=== PATIENT | female | born 1985 ===

== ENCOUNTER 2023-10-14 15:56 | Outpatient (AMB) | payer OTHER, MEDICARE, SELFPAY ==
--- NOTE | 2023-10-14 15:57 | MHC.OFFWIV ---
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 Patient has chronic pain and nausea at baseline, as well as chronic migraines, but states this headache is different. She does endorse nausea, and reports using marijuana, as she usually does to treat the nausea, with limited efficacy. For her chronic pain she generally takes 4 mg of Dilaudid twice a day as needed. She did take this dose as well about 2 hours ago. Her , at bedside, is concerned about her level of lethargy, given the head trauma. [facility] Social History Patient Tobacco Use Status: Current everyday Tobacco user Patient : No Review of Systems Const Reports as per HPI, Denies frequent falls, Reports headache(s), Reports lethargy and Reports weakness Eyes Denies blurry vision, Denies change in vision and Reports photophobia ENT Reports Normal hearing present, Reports dizziness, Reports headache(s) and Denies nasal trauma Card Denies syncope and Denies dyspnea Resp Denies dyspnea GI Reports nausea and Denies vomiting Denies urinary incontinence Musc Reports abnormal gait Skin/Breast Denies bleeding lesions Neuro Reports Normal hearing present, Denies Neuro-related abnormal movements, Reports abnormal gait, Reports dizziness, Denies syncope, Denies frequent falls, Reports headache(s), Denies lack of coordination, Denies focal weakness, Denies seizure-like activity and Reports weakness Thad/Lymph Denies easy bleeding and Denies easy bruising Physical Exam Vital Signs: Last Vital Signs Pulse 97 10/14/23 15:58 BP 110/74 10/14/23 15:58 Pulse Ox 92 10/14/23 15:58 Oxygen Delivery Method Room Air 10/14/23 15:58 BMI result Body Mass Index 23.8 Const General: cooperative, no acute distress, lethargic and tired appearing Orientation/consciousness: patient oriented x3 and lethargic HEENT Head: Yes normal to inspection, Yes No palpable skull fracture present, Yes normocephalic, Yes atraumatic, No abrasion, No contusion, No hematoma, No laceration, No raccoon eyes and No scalp lesion Ears: TM's normal bilaterally Mouth: Normal oral and palatal mucosa present and oropharynx normal Throat: Yes posterior oropharynx normal Eyes General: appearance normal, both eyes and all related structures Alignment and Position: alignment normal and position normal Periorbital: periorbital findings normal Eyelids: Yes eyelids normal Conjunctivae: conjunctivae normal Sclerae: scleral abnormal (injected) Pupils: Equal, round and reactive pupils present, Pupils normal by confrontation, Pupil accommodation reflex normal and Pinpoint pupils EOM: EOMs intact bilaterally Direct Ophthalmoscopy: normal light reflex and photophobia Neuro General: patient oriented x3 Cranial nerves: Yes Equal, round and reactive pupils present and Yes Normal hearing present Gait exam (Neuro): Shuffling gait present Motor exam (neuro): 5/5 motor strength present throughout and Normal motor muscle tone present throughout Deep tendon reflexes (DTR's): Right patellar reflex intensity grade: 3+ and Left patellar reflex intensity grade: 3+ Coordination: sways with eyes open and Romberg test positive Romberg Test: Positive Psych Mental Status: other (somnolent but responsive to questioning) Speech and movement: Clear speech present Affect: Labile affect present (abruptly tearful, then somnolent, then engaged with examner) Attitude: cooperative and Guarded attititude/behavior present Thought process: Normal thought process present Thought content: Normal thought content present Assessment & Plan Assessment & Plan (1) Mild concussion: Code(s): S06.0XAA - Concussion with loss of consciousness status unknown, initial encounter Qualifiers: Encounter type: initial encounter Loss of consciousness presence/duration: without LOC Qualified Code(s): S06.0X0A - Concussion without loss of consciousness, initial encounter Plan: Reviewed signs, symptoms of worsening concussion including worsening headache, vomiting, loss of consciousness, inability to ambulate independently. At this time patient has a weakly positive Romberg, but her at bedside reports she has baseline dizziness and poor equilibrium. There is no abrasion, contusion, or hematoma to suggest emergent head trauma. Given the patient has used marijuana and Dilaudid today, I suggested symptoms may be consistent with overdose, at which point patient burst into tears but did seem more animated. At this time, Pt and comfortable with ED precautions and agree to report to care should her condition worsen. Consussion instructions otherwise per below. Patient Instructions: Patient education: Concussion in adults (The Basics) Written by the doctors and editors at [employer]://www.[employer]/contents/[email or web address]-trktbet/patient-education Please read the?Disclaimer?https://www.[employer]/contents/jpctfykzzd-se-mkigil-the-basics/print?search=concussion%20patient%20info&source=search_result&selectedTitle=2%7E100&usage_type=default&display_rank=2#disclaimerContentat the end of this page. What is a concussion? A concussion is the medical term for a mild brain injury. It can cause confusion, memory loss, and headache. A concussion usually happens after a person hits their head. But in some cases, it can happen after an injury or accident that causes violent shaking of the head. Common causes of concussion include: ?Car accidents ?Falling down and other accidents that can happen from daily activities ?Injuries from playing sports such as football, ice hockey, soccer, and boxing ?Injuries that can happen to soldiers during combat. These include injuries from blasts and bullet wounds. What are the symptoms of a concussion? People used to think that passing out or blacking out was an important feature of a concussion. But it is actually common to have a concussion without blacking out. Symptoms that can happen immediately, or in the first minutes to hours after a concussion, include: ?Memory loss ? People sometimes forget what caused their injury, as well as what happened right before and after the injury. ?Confusion ?Headache ?Dizziness or trouble with balance ?Nausea or vomiting Some people recover quickly from a concussion and have no further symptoms. But others have symptoms that persist or happen hours to days after a concussion. These might include: ?Trouble walking or talking ?Memory problems or problems paying attention ?Trouble sleeping or feeling very tired or sleepy ?Mood or behavior changes (for example, acting cranky, irritable, or not like themselves) ?Being bothered by things like noise or light Will I need tests? It depends on your injury and symptoms. To check if you have a concussion, your doctor will ask about your symptoms and do a physical exam. They will also ask you questions to check that you are thinking clearly. If your doctor suspects a serious injury, they might order an imaging test of the brain, such as a CT or MRI scan. These tests create pictures of the skull and inside of the brain. How is a concussion treated? If you think that you are having symptoms related to a head injury or concussion, see a doctor or nurse. This might be your regular doctor, or they might refer you to a different doctor. Treatment of a concussion involves: ?Preventing further injury ? While you are healing, it's important not to do too much, especially activities that could lead to another head injury, like organized sports. Having a second injury while the brain is healing from a concussion can seriously damage the brain. ?Physical rest ? Rest your body, and get plenty of sleep. Avoid heavy exercise or too much physical activity if it makes you feel worse. ?Mental rest ? Doctors also call this cognitive rest. Avoid doing activities that need concentration or a lot of attention if they make you feel worse. Sometimes, activities using screens, especially videogames, can make people feel worse after a concussion. You can start doing these things again as you get better. ?Avoiding alcohol and cannabis while you are still having symptoms of concussion ?Treating headache ? You can take an smkt-mua-tdiopkx pain reliever if you have a headache. These include?acetaminophenhttps://www.[employer]/contents/jmewwpfnwzraz-bhehmwojuau-lmnndns-drug-information?search=concussion+patient+info&cojfwApe=75182&source=see_link?(sample brand name: Tylenol) and NSAIDs such as?ibuprofenhttps://www.[employer]/contents/cxerbedyw-ifaynty-dejx-information?search=concussion+patient+info&ktmboIvy=64431&source=see_link?(sample brand names: Advil, Motrin) and?naproxenhttps://www.[employer]/contents/vllipnen-sikvhib-hkdp-information?search=concussion+patient+info&qdqbzGil=53452&source=see_link?(sample brand name: Martita). Most concussions get better on their own, but it can take time. For some people, the symptoms go away within minutes to hours. Other people have symptoms for weeks to months. When symptoms last a long time, doctors call it postconcussion syndrome. When should I call for help? After a concussion, your doctor might recommend that someone stay with you for 12 to 24 hours. This person should watch for any new symptoms. Someone should?call for an ambulance?(in the [place] and [place],?call ) if you: ?Cannot be fully woken up ?Are acting confused or disoriented ?Have a sudden and persistent change in your behavior ?Cannot walk normally ?Have trouble speaking or slurred speech ?Have severe weakness or cannot move an arm, leg, or 1 side of your face ?Have a seizure or jerking of your arms or legs you cannot control Someone should call the doctor or nurse for advice if you: ?Have concussion symptoms that are not improving or are getting worse, even with physical and mental rest ?Have blood or clear liquid draining from your ears or nose ?Seem weak or have numbness in an arm, leg, or other body part ?Have a stiff neck ?Have a headache that is severe, gets worse, feels different, or does not get better with bntb-gyj-vsifskc medicines If?any?of the above symptoms seem severe, or if you are concerned but cannot reach the doctor or nurse, seek emergency help. These things don't always mean that there is a serious problem, but seeing a doctor or nurse is the only way to know for sure. When can I play sports or do my usual activities again? Ask your doctor when you can play sports or do your usual activities again. It will depend on your injury and symptoms, as well as the type of sport you play. Do not play sports on the same day as your injury. When you are able to return to work also depends on your symptoms and the type of work you do. It's important to let your brain heal completely after a concussion. Getting another concussion before your brain has healed can lead to serious brain problems. How can I prevent another concussion? To help prevent another concussion, you can: ?Wear a helmet when you ride a bike or motorcycle, or play certain sports. ?Wear a seat belt when you drive or ride in a car. If you have had a concussion, it's very important to try to prevent future concussions. Having many concussions might cause long-term brain damage and affect your thinking. More on this topic Patient education: Head injury in adults (The Basics)https://www.[employer]/contents/axqt-knctlh-pw-gxvllk-uxc-lrsmdh?search=concussion+patient+info&qaqgsBgb=11623&source=see_link Patient education: Headaches in adults (The Basics)https://www.[employer]/contents/ygclphsyf-nf-gjdnbp-the-basics?search=concussion+patient+info&relbdYmt=54742&source=see_link Patient education: Vertigo (a type of dizziness) (The Basics)https://www.[employer]/contents/lzhbsge-d-byri-yq-guhgfwvck-kfi-basics?search=concussion+patient+info&onnyaUjo=24374&source=see_link Patient education: Postconcussion syndrome (The Basics)https://www.[employer]/contents/fluorqymfirxdy-afhlpfdk-yru-basics?search=concussion+patient+info&hqkpwMii=00478&source=see_link Patient education: Head injury observation in adults (The Basics)https://www.[employer]/contents/tmkm-igxxul-kcjmumfzmib-sh-lukzqn-brz-basics?search=concussion+patient+info&wjpjsDfy=67081&source=see_link Patient education: Moderate to severe traumatic brain injury (The Basics)https://www.[employer]/contents/jbklkkvu-fh-pgwgvv-ssbrtyeea-lqfbq-fpjtha-the-basics?search=concussion+patient+info&oruglVzp=40279&source=see_link Patient education: Headache treatment in adults (Beyond the Basics)https://[employer]/contents/pieifnoo-tfsenpmfm-yg-jjmnkt-pimpyh-kla-basics?search=concussion+patient+info&mrtsgTgp=34288&source=see_link Patient education: Head injury in children and adolescents (Beyond the Basics)https://www.[employer]/contents/wrpf-lgeedd-oq-jxpmbyoc-wak-kbfpzwcolcf-qfpgbg-vou-teshnd?search=concussion+patient+info&caiwpNno=06491&source=see_link Patient education: Vertigo (Beyond the Basics)https://www.[employer]/contents/mtdlvxs-yigdvv-qls-basics?search=concussion+patient+info&mcfwdUlb=33072&source=see_link All topics are updated as new evidence becomes available and our?peer review processhttps://www.[employer]/home/editorial-policy?is complete. This topic retrieved from [employer] on:?Oct 14, 2023. Disclaimer: This generalized information is a limited summary of diagnosis, treatment, and/or medication information. It is not meant to be comprehensive and should be used as a tool to help the user understand and/or assess potential diagnostic and treatment options. It does NOT include all information about conditions, treatments, medications, side effects, or risks that may apply to a specific patient. It is not intended to be medical advice or a substitute for the medical advice, diagnosis, or treatment of a health care provider based on the health care provider's examination and assessment of a patient's specific and unique circumstances. Patients must speak with a health care provider for complete information about their health, medical questions, and treatment options, including any risks or benefits regarding use of medications. This information does not endorse any treatments or medications as safe, effective, or approved for treating a specific patient. [employer] and its affiliates disclaim any warranty or liability relating to this information or the use thereof. The use of this information is governed by the Terms of Use, available at?https://www.[employer].com/en/know/aublunsm-akegyzvcjagwu-wfffy. 2023? [employer]. and its affiliates and/or licensors. All rights reserved. Topic 92638 Version 11.0 Coding Level of Care Code Est Pt Level 3 (40455) Diagnoses Concussion without loss of consciousness, initial encounter S06.0X0A Encounter type: initial encounter Loss of consciousness presence/duration: without LOC
[2023-10-14 15:58] VITALS: BP 110/74; PULSE 97; O2SAT 92; BMI 23.8
== END 2023-10-14 16:27 | disposition home or self-care (01) ==
PROVIDERS: Visit Provider Emergency Medicine
DX: S06.0X0A Concussion without loss of consciousness, initial encounter (principal)
CPT/HCPCS: 99213